=== PATIENT | male | born 1995 | race Caucasian/White ===

== ENCOUNTER → 2020-09-07 | Outpatient (CLI) | payer BC ==
--- NOTE | 2020-09-07 10:47 | CT ---
EXAMINATION TYPE: CT ankle LT wo con DATE OF EXAM: 09/07/2020 COMPARISON: No radiographic correlation available. HISTORY: 24-year-old male M79.672, Left foot pain TECHNIQUE: Contiguous axial scanning of the left ankle without IV contrast. Coronal and sagittal demetrius nstructions performed. CT DLP: 245 mGycm Automated exposure control for dose reduction was used. FINDINGS: A moderate posterior subtalar joint effusion is noted. The subtalar joint remains aligned. However, there is some dorsal spurring at the talonavicular joint and bony irregularity about a narro wed and broad-based abutment at the calcaneonavicular junction, refer to axial image 42 and sagittal image 31. Smooth delineation to the Achilles tendon. Preserved fatty signal within the sinus Tarsi. The medial band of the plantar fascia appears normal. Talar Dome is intact. Technique os peroneum. Possible underlying pes planus that would be better evaluated with weightbearing lateral radiograph. No acute fracture, subluxation, dislocation. IMPRESSION: 1. 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 2. THERE MAY BE SOME EARLY ASSOCIATED DEGENERATIVE CHANGE ALONG THE DORSAL TALONAVICULAR JOINT AND A REACTIVE POSTERIOR SUBTALAR JOINT EFFUSION. 3. CORRELATE FOR POSSIBLE UNDERLYING PES PLANUS.
== END ==
LOC: RADCTMAIN 09:26
PROVIDERS: ATTEND Podiatrist
DX: M25.472 Effusion, left ankle (principal)

== ENCOUNTER 2020-10-01 07:39 | Day surgery (SDC) | payer BC ==
[~2020-10-01 07:39] MED LIST: DEXAMETHASONE SOD PHOSPHATE 4 MG/ML 1 ML VIAL IV ONE; HYDROmorphone 0.5 MG/0.5 ML SYRINGE IVP PRN; MIDAZOLAM 2 MG/2 ML VIAL IV PRN; ONDANSETRON 4 MG/2 ML VIAL IVP ONE; SCOPOLAMINE 1.5MG/72HR PATCH TRANSDERM ONE; ceFAZolin 3 GM in SODIUM CHLORIDE 0.9% 100 ML IVPB PRN
[2020-10-01] MEDS: LACTATED RINGERS 1,000 ML IV SCH ×2 (08:17→08:39)
[2020-10-01] MEDS ORDERED: LIDOCAINE 1% (10MG/ML) FOR IV START INTRADERMA ONE (08:40)
[2020-10-01] MEDS ORDERED: MIDAZOLAM 2 MG/2 ML VIAL IVP ONE (09:04)
[2020-10-01] MEDS ORDERED: fentaNYL (PF) 50 MCG/ML 2 ML AMP IVP ONE (09:04)
[2020-10-01] MEDS ORDERED: KETAMINE 10 MG/ML 20 ML VIAL ONE (09:25)
[2020-10-01] MEDS ORDERED: PROPOFOL 10 MG/ML 20 ML VIAL IV ONE (09:25)
[2020-10-01] MEDS ORDERED: LIDOCAINE 1% INJ 10MG/ML (20 ML MDV) ONE (09:25)
[2020-10-01] MEDS ORDERED: fentaNYL (PF) 50 MCG/ML 2 ML AMP ONE (09:25)
[2020-10-01] MEDS ORDERED: HYDROmorphone (PF) 1 MG/ML ONE (09:25)
[2020-10-01] MEDS ORDERED: ROPIVACAINE 5 MG/ML 30 ML VIAL ONE (09:25)
[2020-10-01] MEDS ORDERED: MIDAZOLAM 2 MG/2 ML VIAL ONE (09:25)
[2020-10-01] MEDS ORDERED: SUCCINYLCHOLINE CHLORIDE VIAL 200 MG/10 ML VIAL IV ONE (09:25)
--- NOTE | 2020-10-01 09:48 | P.ANPRN ---
Procedure Note - Anesthesia - Nerve Block Performed Left Popliteal Single Time Out Performed: Yes Date of Procedure: 10/01/20 Procedure Start Time: : Procedure Stop Time: :10 Location of Patient: PreOp Indication: Requested by Surgeon Specifically requested for management of pain by DrBrooke: Barrington Beltran Sedation Type: Sedate with meaningful contact maintained Preparation: Sterile Prep Position: Right Lateral Needle Types: Pajunk Needle Gauge: 21 Ultrasound used to visualize needle placement: Yes Ultrasound used to observe medication spread: Yes Injectate: 0.5% Ropivacaine (see comment for volume) (20 ml plus Dexamethasone 4 mg) Blood Aspirated: No Pain Paresthesia on Injection Noted: No Resistance on Injection: Normal Image Stored and Saved: Yes Events: Uneventful and Well Tolerated
--- NOTE | 2020-10-01 09:49 | P.ANPRN ---
Procedure Note - Anesthesia - Nerve Block Performed Left Adductor Canal Single Time Out Performed: Yes Date of Procedure: 10/01/20 Procedure Start Time: :11 Procedure Stop Time: :18 Location of Patient: PreOp Indication: Requested by Surgeon Sedation Type: Sedate with meaningful contact maintained Preparation: Sterile Prep Position: Supine Needle Types: Pajunk Needle Gauge: 21 Ultrasound used to visualize needle placement: Yes Ultrasound used to observe medication spread: Yes Injectate: 0.5% Ropivacaine (see comment for volume) (20 ml plus 4 mg Dexamethason) Blood Aspirated: No Pain Paresthesia on Injection Noted: No Resistance on Injection: Normal Image Stored and Saved: Yes Events: Uneventful and Well Tolerated
[2020-10-01] MEDS ORDERED: ceFAZolin 1,000 MG in SODIUM CHLORIDE 0.9% 1,000 ML IRRIGATION ONE (09:53)
[2020-10-01] MEDS ORDERED: LACTATED RINGERS 1,000 ML IV ONE ×2 (10:41)
--- NOTE | 2020-10-01 11:31 | XR ---
EXAMINATION TYPE: XR ankle limited LT DATE OF EXAM: 10/01/2020 COMPARISON: NONE HISTORY: LT ANKLE ORIF TECHNIQUE: one view FINDINGS: Single view demonstrates Limited apparent postoperative change. IMPRESSION: Intraoperative limited image
--- NOTE | 2020-10-01 11:41 | FL ---
EXAMINATION TYPE: FL guidance operating room DATE OF EXAM: 10/01/2020 HISTORY: Fluoroscopy time 1 minute and 7 seconds of fluoroscopy provided. IMPRESSION: 1. Fluoroscopy time.
[2020-10-01 11:43] VITALS: TEMP 98.7
[2020-10-01 11:47] VITALS: RESP 16
--- NOTE | 2020-10-01 11:56 | P.OP ---
Date of Procedure: 10/01/20 Preoperative Diagnosis: 1. Left foot deformity 2. Calcaneonavicular coalition left foot 3. Talocalcaneal coalition left foot Postoperative Diagnosis: 1. Same 2. Same 3. Same Procedure(s) Performed: 1. Subtalar arthrodesis left foot 2. Resection of calcaneal navicular coalition left foot 3. Resection of talocalcaneal coalition left foot Implants: 2 CREED screws Anesthesia: GETA Surgeon: Barrington Beltran Estimated Blood Loss (ml): 5 Pathology: none sent Condition: stable Disposition: PACU Indications for Procedure: Patient had pain in a semirigid foot deformity on the left side. Physical examination revealed that there was little to no subtalar joint range of motion. 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 The patient was then brought into the operating room and placed on the table supine position. Timeout was taken to confirm correct patient identifiers, correct site of surgery, and correct procedure. When all members of the room were in agreement with the timeout the patient was placed under general anesthetic. A well-padded tourniquet was placed in the patient's left thigh and a wedge placed underneath the left hip to internally rotate the left leg. The left leg was then prepped and draped in usual manner. The left leg was exsanguinated and the tourniquet inflated to 250 mmHg. Attention was directed over the anterior lateral aspect of the left hindfoot, where an incision was made beginning at the tip of the lateral malleolus extending over the sinus tarsi and ending near the lateral side of the navicul ar. The incision was deepened down to the subcutaneous tissue careful to identify voiding retract any neurovascular structures and cauterize any bleeding vessels. Blunt dissection was continued through the saphenous layer down to the joint capsule over the subtalar joint. The subtalar joint capsule was incised to fully visualize anterior side of the joint the extensor digitorum brevis muscle belly was also lightly reflected off of the anterior process of the calcaneus to expose the calcaneal navicular coalition. Fluoroscopic visualization a metallic instrument was used to pinpoint area of the coalition. Then utilizing a combination of osteotomes and a Gas[employer] Truck Crane Operator, the abnormal bony growth between the calcaneus and navicular was resected. Once it was fully resected there is a significant increase the amount of subtalar and midtarsal joint range of motion. However there was no restriction with inversion eversion so a osteotome was inserted through the subtalar joint under fluoroscopic visualization until it approached the middle facet of the subtalar joint. Only light pressure was applied with a mallet and that area was freed and what appeared to be a fibrous union. Once that was completed a significant increase in subtalar joint range of motion occurred. However the patient was still dealing with a flatfoot deformity therefore at that point the subtalar arthrodesis was performed. This is done by utilizing various osteotomes, gouges and curettes to remove all the articular cartilage as well as the subchondral bone to expose bleeding medullary bone. Once that was completed a small osteotome was used to fish scale the subchondral bone. And then a 2 mm wire was used to fenestrate both surfaces. 5 mL of an allogenic bone graft was inserted between the the arthrodesis site. Guidewires for the 7.0 mm screws were inserted in the posterior aspect of the calcaneus avoiding the Achilles tendon attachment and directly plantar on the heel. Both wires were advanced under direct fluoroscopic visualization until the across the subtalar joint and went into the body of the talus. The position of the wires as checked both on the AP oblique and lateral views. Once wire position was satisfactory small stab incisions were made to the skin around the wires and then the drill inserted over the wires the drilling completed. The screws were then applied over the guidewires and advanced until the threaded head of the screw engaged the calcaneus and then sat flush. Once both screws were in place final fluoroscopic imaging showed proper placement of both screws as well as good compression across the arthrodesis site. Inspected it from the wound there was no excessive gapping noted at the subtalar joint. At that point the guidewires were removed and the wound irrigated with antibiotic saline. The deep closure of the subtalar incision was done with 0 Vicryl subcu closure done for Monocryl skin closure done with robert. Crossnore were also used to close a small incisions on the back of the heel where the screws were placed. Nonadherent gauze applied over the incisions, and a bulky dry dressing. The tourniquet was released and capillary refill return to all digits on the left foot. The patient was then placed in a well-padded, well molded, plaster posterior mold sugar tong splint. The ankle was held at 90 and slight inversion as it dried. Once the splint was dried, the patient was reversed from general anesthetic and taken recovery with vital signs stable
[2020-10-01] MEDS ORDERED: ONDANSETRON 4 MG/2 ML VIAL ONE (12:30)
[2020-10-01] MEDS ORDERED: ONDANSETRON 4 MG/2 ML VIAL IVP ONE (12:34)
[2020-10-01 12:53] VITALS: BP 123/78; PULSE 78
== END 2020-10-01 14:23 | disposition home or self-care (01) ==
LOC: OR 07:39
PROVIDERS: ATTEND Podiatrist
DX: Q66.89 Other specified congenital deformities of feet (principal); M21.42 Flat foot [pes planus] (acquired), left foot; Z83.3 Family history of diabetes mellitus
CPT/HCPCS: 28725; 28116; 64447; 64445; 76942; 73600; C1713; J2250; J0330; J1100; J0690 ×2; J2405; J2001; J3010; J1170; J2795; J2704; 64450

== ENCOUNTER 2021-03-28 09:08 | Emergency (ER) | payer BC, OTHER ==
[2021-03-28 09:20] VITALS: RESP 18; TEMP 97.7
--- NOTE | 2021-03-28 09:49 | XR ---
EXAMINATION TYPE: XR ankle complete RT DATE OF EXAM: 03/28/2021 COMPARISON: NONE HISTORY: Pain TECHNIQUE: Frontal, lateral and oblique images of the right ankle are obtained. COMPARISON: None. FINDINGS: There is no acute fracture/dislocation evident. The joint spaces appear within normal garcia its. Soft tissue swelling laterally. IMPRESSION: There is no acute fracture or dislocation seen.
--- NOTE | 2021-03-28 10:02 | ED ---
Lower Extremity Injury HPI - General Chief Complaint: Extremity Injury, Lower Stated Complaint: [facility] ankle injury Time Seen by Provider: 03/28/21 09:52 Source: EMS, RN notes reviewed Mode of arrival: EMS Limitations: no limitations - History of Present Illness Initial Comments: This a 25-year-old male present emergency department with chief complaint of r ight ankle injury. Patient states he was throwing trash stepped off a hole rolled his ankle. Patient window right lateral ankle pain declined pain meds by EMS does not wanting pain meds he states that he has lateral pain ankle no foot pain no other complaints. - Related Data Previous Rx's Medication Instructions Recorded HYDROcodone/APAP 7.5-325MG [[place] 1 tab PO Q4H PRN #50 tab 10/01/20 7.5-325] Ibuprofen [Motrin] 600 mg PO Q8HR PRN #20 tab 03/28/21 Allergies Allergy/AdvReac Type Severity Reaction Status Date / Time No Known Allergies Allergy Verified 10/01/20 08:24 Review of Systems ROS Statement: Those systems with pertinent positive or pertinent negative responses have been documented in the HPI. ROS Other: All systems not noted in ROS Statement are negative. Past Medical History Additional Past Medical History / Comment(s): PAIN LEFT FOOT, WEARING FOOT BRACE. History of Any Multi-Drug Resistant Organisms: None Reported Past Surgical History: Orthopedic Surgery Additional Past Surgical History / Comment(s): Left foot surgery on september 2020 Additional Past Anesthesia/Blood Transfusion Reaction / Comment(s): NO ANESTHESIA HX Past Psychological History: No Psychological Hx Reported Smoking Status: Never smoker Past Alcohol Use History: Occasional Past Drug Use History: None Reported - Past Family History Mother Family Medical History: No Reported History General Exam Limitations: no limitations General appearance: alert, in no apparent distress Head exam: Present: atraumatic, normocephalic, normal inspection Respiratory exam: Present: normal lung sounds bilaterally. Absent: respiratory distress, wheezes, rales, rhonchi, stridor Cardiovascular Exam: Present: regular rate, normal rhythm, normal heart sounds. Absent: systolic murmur, diastolic murmur, rubs, gallop, clicks Extremities exam: Present: other (Right ankle lateral swelling over the malleolus, tenderness with palpation no foot tenderness no proximal tib-fib tenderness neurovascular intact) Neurological exam: Present: alert Skin exam: Present: warm, dry, intact, normal color. Absent: rash Course Vital Signs 03/28/21 09:15 Temperature 97.7 F Pulse Rate 68 Respiratory 18 Rate Blood Pressure 132/90 O2 Sat by Pulse 98 Oximetry Medical Decision Making - Medical Decision Making X-rays negative for acute fracture. Patient has a right ankle sprain. Return parameters were discussed. Disposition Clinical Impression: Right ankle sprain Disposition: HOME SELF-CARE Condition: Stable Instructions (If sedation given, give patient instructions): Ankle Sprain (ED) Additional Instructions: Please return to the Emergency Department if symptoms worsen or any other co ncerns. Prescriptions: Ibuprofen [Motrin] 600 mg PO Q8HR PRN #20 tab PRN Reason: Pain Is patient prescribed a controlled substance at d/c from ED?: No Referrals: Maeve Estevez MD [Primary Care Provider] - 1-2 days Wenceslao Mckeon MD [Medical Doctor] - 1-2 days Time of Disposition: 10:01
[2021-03-28 11:26] VITALS: BP 138/91; PULSE 73
== END 2021-03-28 11:00 | disposition home or self-care (01) ==
LOC: EC 09:08
DX: S93.401A Sprain of unspecified ligament of right ankle, initial encounter (principal); X50.1XXA Overexertion from prolonged static or awkward postures, initial encounter
CPT/HCPCS: 73610; 99284; 29515; L4350